=== PATIENT | female | born 1965 | race Caucasian/White ===

== ENCOUNTER 2022-11-18 08:34 | Day surgery (SDC) | payer MEDICARE, BC ==
[~2022-11-18] VITALS: Ht 160 cm; Wt 75.7 kg
[2022-11-18 08:50] VITALS: BP 114/86
[2022-11-18] MEDS ORDERED: MORP15TA (08:54)
[2022-11-18] MEDS ORDERED: ONDA-104 PO (08:54)
[2022-11-18] MEDS ORDERED: LEVO150T PO (08:54)
[2022-11-18] MEDS ORDERED: MSC30T PO (08:54)
[2022-11-18] MEDS ORDERED: PROC10TA10 PO (08:54)
[2022-11-18] MEDS ORDERED: ESZO3TAB44 PO (08:54)
[2022-11-18] MEDS ORDERED: OLME20TA23 (08:56)
[2022-11-18] MEDS ORDERED: magnesium oxide (08:57)
[2022-11-18] MEDS ORDERED: CYAN100087 PO (08:59)
[2022-11-18] MEDS ORDERED: albumin 25% 100mL bottle x 1 IV PRN (09:00)
[2022-11-18] MEDS ORDERED: ACET-1025 PO (09:00)
[2022-11-18] MEDS ORDERED: IBUP-1984 PO (09:00)
[2022-11-18] MEDS ORDERED: normal saline 1000ml 1,000 ML IV PRN (09:05)
[2022-11-18] MEDS ORDERED: MIDAZolam 1mg/ml 10ml vial IV ONE (09:05)
[2022-11-18 09:20] VITALS: BP 133/97
[2022-11-18 09:35] VITALS: BP 136/100
[2022-11-18 09:50] VITALS: BP 112/75
[2022-11-18 10:05] VITALS: BP 116/78
== END 2022-11-18 10:12 | disposition home or self-care (01) ==
LOC: SSTAY O 08:34
PROVIDERS: ATTEND Radiology Vascular & Interventional Radiology
DX: C56.3 Malignant neoplasm of bilateral ovaries (principal); R18.0 Malignant ascites; E03.9 Hypothyroidism, unspecified; I10 Essential (primary) hypertension; Z90.710 Acquired absence of both cervix and uterus; Z98.890 Other specified postprocedural states; Z88.6 Allergy status to analgesic agent; Z88.8 Allergy status to other drugs, medicaments and biological substances; Z79.899 Other long term (current) drug therapy; Z91.018 Allergy to other foods
CPT/HCPCS: 49083; A6258

== ENCOUNTER 2022-11-25 08:48 | Day surgery (SDC) | payer MEDICARE, BC ==
[2022-11-25] VITALS (9 sets, daily range): BP systolic 125–142; BP diastolic 73–96
[~2022-11-25] VITALS: Ht 160 cm; Wt 75.8 kg
[~2022-11-25 08:48] MED LIST: ACET-1025 PO; CYAN100087 PO; ESZO3TAB44 PO; IBUP-1984 PO; LEVO150T PO; MORP15TA; MSC30T PO; OLME20TA23; ONDA-104 PO; PROC10TA10 PO; magnesium oxide
[2022-11-25] MEDS ORDERED: albumin 25% 100mL bottle x 1 IV PRN (09:15)
== END 2022-11-25 11:40 | disposition home or self-care (01) ==
LOC: SSTAY O 08:48
PROVIDERS: ATTEND Radiology Vascular & Interventional Radiology
DX: R18.8 Other ascites (principal); R14.0 Abdominal distension (gaseous); E03.9 Hypothyroidism, unspecified; I10 Essential (primary) hypertension; Z85.43 Personal history of malignant neoplasm of ovary; Z90.710 Acquired absence of both cervix and uterus; Z90.49 Acquired absence of other specified parts of digestive tract; Z98.890 Other specified postprocedural states; Z90.721 Acquired absence of ovaries, unilateral; Z88.5 Allergy status to narcotic agent; Z91.018 Allergy to other foods; Z79.899 Other long term (current) drug therapy
CPT/HCPCS: 49083; P9047; A6258

== ENCOUNTER 2022-12-02 08:36 | Day surgery (SDC) | payer MEDICARE, BC ==
[~2022-12-02] VITALS: Ht 160 cm; Wt 75.1 kg
[2022-12-02] MEDS ORDERED: LIDOcaine 1% 30ml preserv. free vial SQ STA (08:45)
[2022-12-02 08:48] VITALS: BP 124/77
[2022-12-02] MEDS ORDERED: albumin 25% 100mL bottle x 1 IV PRN (09:00)
[2022-12-02 10:30] VITALS: BP 110/79
[2022-12-02 10:45] VITALS: BP 114/75
[2022-12-02 11:00] VITALS: BP 109/77
[2022-12-02 11:15] VITALS: BP 110/71
[2022-12-02 11:30] VITALS: BP 105/65
== END 2022-12-02 11:30 | disposition home or self-care (01) ==
LOC: SSTAY O 08:36
PROVIDERS: ATTEND Radiology Vascular & Interventional Radiology
DX: R18.8 Other ascites (principal); R14.0 Abdominal distension (gaseous); I10 Essential (primary) hypertension; E03.9 Hypothyroidism, unspecified; Z85.43 Personal history of malignant neoplasm of ovary; Z79.899 Other long term (current) drug therapy; Z90.49 Acquired absence of other specified parts of digestive tract; Z90.710 Acquired absence of both cervix and uterus; Z98.890 Other specified postprocedural states; Z90.722 Acquired absence of ovaries, bilateral
CPT/HCPCS: 49083; P9047; A6258

== ENCOUNTER 2022-12-10 07:43 | Day surgery (SDC) | payer MEDICARE, BC ==
[~2022-12-10] VITALS: Ht 160 cm; Wt 70.9 kg
[2022-12-10] MEDS ORDERED: LIDOcaine 1% 30ml preserv. free vial SQ STA (07:54)
[2022-12-10 08:00] VITALS: BP 101/74
[2022-12-10] MEDS ORDERED: albumin 25% 100mL bottle x 1 IV PRN (08:00)
[2022-12-10 09:00] VITALS: BP 104/68
[2022-12-10 09:15] VITALS: BP 144/76
[2022-12-10 09:30] VITALS: BP 103/69
[2022-12-10 09:45] VITALS: BP 94/58
[2022-12-11] MEDS ORDERED: MORP15TA PO (21:25)
[2022-12-14] MEDS ORDERED: METO-292 PO (08:12)
[2022-12-14] MEDS ORDERED: morphine sulfate PO (08:12)
[2022-12-14] MEDS ORDERED: [UNRECOGNIZED DRUG - OTHER] PO (08:12)
[2022-12-14] MEDS ORDERED: HALO100A2 PO (08:12)
== END 2022-12-10 09:55 | disposition home or self-care (01) ==
LOC: SSTAY O 07:43
PROVIDERS: ATTEND Radiology Vascular & Interventional Radiology
DX: R18.8 Other ascites (principal); E03.9 Hypothyroidism, unspecified; I10 Essential (primary) hypertension; Z88.5 Allergy status to narcotic agent; Z91.018 Allergy to other foods; Z85.43 Personal history of malignant neoplasm of ovary; Z90.710 Acquired absence of both cervix and uterus; Z90.49 Acquired absence of other specified parts of digestive tract; Z98.890 Other specified postprocedural states; Z90.722 Acquired absence of ovaries, bilateral; Z79.899 Other long term (current) drug therapy
CPT/HCPCS: 49083; J3490; A6258; A6449

== ENCOUNTER 2022-12-11 20:34 | Inpatient (IN) | payer MEDICARE, BC ==
[~2022-12-11] VITALS: Ht 160 cm; Wt 69.1 kg
[2022-12-11] MEDS ORDERED: morphine 10mg/ml inj. IV ONE (20:50)
[2022-12-11] MEDS ORDERED: temazepam 15mg capsule PO PRN (21:00)
[2022-12-11 21:24] LABS: ALANINE AMINOTRANSFERASE 69 U/L (12-78); ALBUMIN 2.2 G/DL (3.4-5.0); ALBUMIN/GLOBULIN RATIO 0.5 (1.1-1.5); ALKALINE PHOSPHATASE 500 IU/L (46-116); ANION GAP 12 (8-16); ASPARTATE AMINO TRANSFERASE 49 U/L (10-37); BILIRUBIN,TOTAL 1.5 MG/DL (0.1-1.0); BLOOD UREA NITROGEN 36 MG/DL (7-18); BUN/CREATININE RATIO 25.2 (6.6-38.0); CALCIUM 9.9 MG/DL (8.5-10.1); CHLORIDE 93 MMOL/L (99-107); CREATININE 1.43 MG/DL (0.40-0.90); GLUCOSE 122 MG/DL (70-104); LIPASE < 50 U/L (73-393); SODIUM 131 MMOL/L (135-145); TOTAL CARBON DIOXIDE 25.9 MMOL/L (24-32); TOTAL PROTEIN 6.7 G/DL (6.4-8.2); eGFR 38 ML/MIN
[2022-12-11] MEDS ORDERED: MORP15TA PO (21:25)
[2022-12-11 21:32] LABS: BASOPHILS % (AUTO) 0.1 % (0-1); EOSINOPHILS % (AUTO) 0.2 % (0-6); HEMATOCRIT 32.5 % (35.0-45.0); HEMOGLOBIN 10.8 g/dl (12.0-16.0); LYMPHOCYTES # (AUTO) 0.6 X10'3 (1.1-4.8); LYMPHOCYTES % (AUTO) 8.1 % (21-51); MEAN CORPUSCULAR HEMOGLOBIN 29.7 PG (27.0-31.0); MEAN CORPUSCULAR HGB CONC 33.1 g/dL (33.0-36.5); MEAN CORPUSCULAR VOLUME 89.5 FL (78-98); MEAN PLATELET VOLUME 6.7 FL (7.4-10.4); MONOCYTES # (AUTO) 0.6 X10'3 (0-0.9); MONOCYTES % (AUTO) 8.8 % (2-12); NEUTROPHILS # (AUTO) 6.1 X10'3 (1.8-7.7); NEUTROPHILS % (AUTO) 82.8 % (42-75); PLATELET COUNT 75 X10'3 (140-440); RED BLOOD COUNT 3.63 X10'6 (4.20-5.60); RED CELL DISTRIBUTION WIDTH 16.1 % (11.5-14.5); WHITE BLOOD COUNT 7.3 X10'3 (4.5-11.0)
[2022-12-11] MEDS ORDERED: normal saline 1000ML IV soln IVB ONE (21:55)
[2022-12-11] MEDS ORDERED: piperacillin/tazo 3.375gm/50ml 50 ML IV ONE (22:00)
[2022-12-11] MEDS ORDERED: magnesium hydroxide 30ml (MOM) UD suspension PO PRN ×2 (22:05→23:35)
[2022-12-11] MEDS ORDERED: potassium Cl 20 mEq SR tablet PO PRN ×2 (22:05)
[2022-12-11] MEDS ORDERED: potassium Cl 40MEQ/1/2NS 520ml 520 ML IV PRN (22:05)
[2022-12-11] MEDS ORDERED: ondansetron 4mg rapidly disintigrating tab PO PRN (22:05)
[2022-12-11] MEDS ORDERED: mag hydrox/Alum hydrox/simeth 30ml oral suspension PO PRN (22:05)
[2022-12-11] MEDS ORDERED: ondansetron/PF 4mg/2ml inj IV PRN (22:05)
[2022-12-11] MEDS: normal saline 1000ml 1,000 ML IV SCH (22:05)
[2022-12-11] MEDS ORDERED: magnesium Cl slow-release 64mg tablet PO PRN (22:05)
[2022-12-11] MEDS ORDERED: magnesium 4gm in 100ml NS 100 ML IV PRN (22:05)
[2022-12-11] MEDS ORDERED: HYDROmorphone 1 mg/ml syringe IV ONE ×3 (22:15→22:55)
--- NOTE | 2022-12-11 23:03 | NUR ---
2mg dilaudid given to ad copy writer by pharmacist d/t omnicell issues. Upon arriving to room, scanner broken. Medication was given in presence of Jose Carlos the RN with family at bedside verifying sealed dilaudid 1mg x2.
[2022-12-11] MEDS ORDERED: bisacodyl 10mg suppository rectal RC PRN (23:30)
[2022-12-11] MEDS ORDERED: methylnaltrexone br 12mg/0.6ml inj***SubQ only SQ PRN (23:30)
[2022-12-11] MEDS ORDERED: bisacodyl 5mg tablet.DR PO PRN (23:30)
[2022-12-11] MEDS ORDERED: magnesium citrate 296ml oral solution PO PRN (23:35)
[2022-12-12] MEDS ORDERED: sodium polystyrene sulfonate ENEMA 30gm/120ml RC ONE
[2022-12-12] MEDS ORDERED: sodium polystyrene sulfonate 15gm/60ml oral suspension PR ONE ×2 (00:05→00:50)
--- NOTE | 2022-12-12 00:09 | NUR ---
Report called to Radha on Surg who kindly accepts report at this time. Patient cleared for transport to receiving unit.
--- NOTE | 2022-12-12 00:15 | NUR ---
Received report from Er, received pt via sofia carrasco to bed. A&O. Pt oriented to room and routine. Plan for enema tonight. Pt wants when available and wants to be covered at this time states "cold" Call light in reach. Iv is to Sl wants iv fluid started after enema. Need U/A pt educated. Addendum: 12/12/22 at 0029 by Fede Patel RN Amended: Links added.
[2022-12-12 00:21] VITALS: BP 146/86
[2022-12-12] MEDS: normal saline 1000ml 1,000 ML IV SCH ×2 (01:00→08:16)
--- NOTE | 2022-12-12 01:40 | NUR ---
Pt unable to hold eneam for very long, pt amb to bathroom, gait steady has wipes and call light in reach. Addendum: 12/12/22 at 0200 by Fede Patel RN Amended: Links added.
[2022-12-12] MEDS: morphine 2 MG/ML inj. syringe IV PRN ×2 (02:42→08:28)
[2022-12-12 04:13] LABS: BASOPHILS % (AUTO) 0.1 % (0-1); EOSINOPHILS % (AUTO) 0 % (0-6); HEMOGLOBIN 9.1 g/dl (12.0-16.0); LYMPHOCYTES # (AUTO) 0.3 X10'3 (1.1-4.8); LYMPHOCYTES % (AUTO) 4.5 % (21-51); MEAN CORPUSCULAR HEMOGLOBIN 29.2 PG (27.0-31.0); MEAN CORPUSCULAR HGB CONC 32.7 g/dL (33.0-36.5); MEAN CORPUSCULAR VOLUME 89.4 FL (78-98); MEAN PLATELET VOLUME 6.9 FL (7.4-10.4); MONOCYTES # (AUTO) 0.8 X10'3 (0-0.9); MONOCYTES % (AUTO) 10.2 % (2-12); NEUTROPHILS # (AUTO) 6.5 X10'3 (1.8-7.7); NEUTROPHILS % (AUTO) 85.2 % (42-75); PLATELET COUNT 68 X10'3 (140-440); RED BLOOD COUNT 3.13 X10'6 (4.20-5.60); RED CELL DISTRIBUTION WIDTH 16.3 % (11.5-14.5); WHITE BLOOD COUNT 7.6 X10'3 (4.5-11.0)
[2022-12-12 04:52] LABS: ALANINE AMINOTRANSFERASE 54 U/L (12-78); ALBUMIN 1.7 G/DL (3.4-5.0); ALBUMIN/GLOBULIN RATIO 0.4 (1.1-1.5); ALKALINE PHOSPHATASE 398 IU/L (46-116); ANION GAP 8 (8-16); ASPARTATE AMINO TRANSFERASE 38 U/L (10-37); BILIRUBIN,TOTAL 1.2 MG/DL (0.1-1.0); BLOOD UREA NITROGEN 34 MG/DL (7-18); BUN/CREATININE RATIO 28.3 (6.6-38.0); CALCIUM 8.7 MG/DL (8.5-10.1); CHLORIDE 98 MMOL/L (99-107); GLUCOSE 120 MG/DL (70-104); MAGNESIUM 2.1 MG/DL (1.5-2.4); POTASSIUM 4.8 MMOL/L (3.5-5.1); SODIUM 133 MMOL/L (135-145); TOTAL CARBON DIOXIDE 27.1 MMOL/L (24-32); TOTAL PROTEIN 5.5 G/DL (6.4-8.2); eGFR 46 ML/MIN
[2022-12-12 05:18] LABS: TOTAL CELLS COUNTED 100
[2022-12-12 05:19] LABS: ANISOCYTOSIS 1+; PLATELET ESTIMATE DECREASED
[2022-12-12] MEDS ORDERED: non-formulary drug (Acetaminophen (Tylenol Extra Strength) 1 TAB) PO PRN (05:55)
[2022-12-12] MEDS ORDERED: piperacillin/tazo 3.375gm/50ml 50 ML IV SCH (06:00)
[2022-12-12 06:40] LABS: CLARITY,URINE CLEAR (Clear); COLOR,URINE AMBER (Yellow); GLUCOSE, URINE NEGATIVE (Neg); KETONES,URINE TRACE mg/dl (Neg); LEUKOCYTE ESTERASE ,URINE NEGATIVE (Neg); NITRITES, URINE NEGATIVE (Neg); OCCULT BLOOD,URINE NEGATIVE (Neg); PH,URINE 5.5 (4.8-8.0); PROTEIN,URINE TRACE mg/dl (Neg)
--- NOTE | 2022-12-12 06:45 | NUR ---
Pt n/v, zofran given, cool washcloth given. Problems reprioritized. Patient report given, questions answered & plan of care reviewed with LEMUEL Madera. Addendum: 12/12/22 at 0647 by Fede Patel RN Amended: Links added.
[2022-12-12 06:58] LABS: UA COLLECTION TYPE NON-SPECIFIED
[2022-12-12 06:59] LABS: BACTERIA,URINE NONE SEEN /HPF (Neg); RBC,URINE NONE SEEN /HPF (0-2); WBC,URINE 0-4 /HPF (0-4)
--- NOTE | 2022-12-12 06:59 | NUR ---
Patient in room [facility]. I have received report from Berna EDWARDS and had the opportunity to ask questions and assume patient care.
[2022-12-12 07:00] LABS: MUCUS STRANDS FEW /LPF (Neg); SQUAMOUS EPITHELIAL CELL,UR FEW /LPF (FEW)
[2022-12-12] MEDS ORDERED: levoTHYROXINE 75mcg tablet PO SCH (07:00)
[2022-12-12] MEDS ORDERED: heparin, porcine 5000 units/ml vial SQ SCH (08:00)
[2022-12-12] MEDS ORDERED: cyanocobalamin 500mcg tablet PO SCH (08:00)
[2022-12-12] MEDS ORDERED: docusate sod 100mg capsule PO SCH ×2 (08:00)
[2022-12-12] MEDS ORDERED: K and/or MAG REPLACEMENT MC SCH (08:00)
[2022-12-12] MEDS: metoclopramide 5 mg/ml inj IV PRN ×2 (08:24→14:58)
--- NOTE | 2022-12-12 14:01 | NUR ---
PAGER ID: [phone] MESSAGE: RE pt chelsie hilario rm [id number] FYI pt has had 3 large BM since enema administered thank you mekhi [id number]
[2022-12-12] MEDS ORDERED: CIPR-259 PO ×2 (14:43)
[2022-12-12] MEDS ORDERED: METR-159 PO (14:43)
[2022-12-12] MEDS ORDERED: MAGN400O6 PO (14:43)
[2022-12-12] MEDS ORDERED: polyethylene glycol 3350 pkt PO (14:43)
[2022-12-12] MEDS ORDERED: BISA10SU11 RC (14:43)
--- NOTE | 2022-12-12 14:55 | NUR ---
Malnutrition Consult: Pt admit for abdominal pain/N/V DX intractable abdominal pain w/ abundance of stool in colon per EMR. 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 Pt w/ normal strength, BLE/abdomen mild edema, skin intact, and appears WD/WN per MD note. Pt w/ no scaled wt this admit though current reported wt consistent w/ prior dry wt hx past month following paracenteses per EMR. 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 Pt now s/p 3 large BM's today pending discharge w/ appointment for [facility] tomorrow per EMR. At this time pt lacks minimum malnutrition criteria; will continue to follow. Addendum: 12/12/22 at [address] Amended: Links added.
[2022-12-12] MEDS ORDERED: polyethylene glycol 3350 17gm powd pack PO SCH (21:00)
[2022-12-14] MEDS ORDERED: METO-292 PO (08:12)
[2022-12-14] MEDS ORDERED: morphine sulfate PO (08:12)
[2022-12-14] MEDS ORDERED: HALO100A2 PO (08:12)
[2022-12-14] MEDS ORDERED: [UNRECOGNIZED DRUG - OTHER] PO (08:12)
== END 2022-12-12 15:30 | disposition hospice, home (50) | DRG 872 ==
LOC: ER 20:34 → ED HOLD 22:14 → SUR 3N 12-12 00:20
PROVIDERS: ADMIT Family Medicine; ATTEND Internal Medicine
DX: A41.9 Sepsis, unspecified organism (principal); E87.1 Hypo-osmolality and hyponatremia; C78.7 Secondary malignant neoplasm of liver and intrahepatic bile duct; C56.3 Malignant neoplasm of bilateral ovaries; Z66 Do not resuscitate; E03.9 Hypothyroidism, unspecified; I10 Essential (primary) hypertension; K59.00 Constipation, unspecified; Z88.6 Allergy status to analgesic agent; Z90.49 Acquired absence of other specified parts of digestive tract; Z90.710 Acquired absence of both cervix and uterus; Z88.8 Allergy status to other drugs, medicaments and biological substances; Z79.899 Other long term (current) drug therapy
CPT/HCPCS: 36415; 49083; 74176; 80053; 81001; 83605; 83690; 83735; 84145; 85007; 85025; 87040; 87081; 96365; 96375; 99285; A6258; A6449; G0378; J1170; J2212; J2270; J2274; J2405; J2543; J2765; J3490; J7030